=== PATIENT | female | born 1975 | race Caucasian/White ===

== ENCOUNTER 2021-08-05 18:01 | Emergency (ER) | payer OTHER ==
[~2021-08-05] VITALS: Ht 160 cm; Wt 88.5 kg
[~2021-08-05 18:01] MED LIST: FERR325E14 PO; PANT40EC PO
[2021-08-05 18:09] VITALS: BP 187/93
--- NOTE | 2021-08-05 18:16 | NUR ---
PT AMBULATED TO BED 09.
--- NOTE | 2021-08-05 19:03 | NUR ---
46 Y/O F BIB SELF C/O LUQ, LLQ/LUQ, DIZZINESS, ANXIETY, N/V/D/FATIGUE, WEAKNESS, BLOOD IN STOOL THAT IS CHRONIC BUT BECAME WORSE AFTER 2 WEEKS. pmh: htn, hernia repair, anxiety allergies: coband (skin swelling) med: denies
[2021-08-05 19:18] LABS: APPEARANCE,URINE CLEAR (CLEAR); BILIRUBIN,URINE NEGATIVE (NEGATIVE); BLOOD, URINE TRACE-I (NEGATIVE); COLOR,URINE YELLOW (YELLOW); LEUKOCYTE ESTERASE ,URINE NEGATIVE (NEGATIVE); NITRITE, URINE NEGATIVE (NEGATIVE); UGLUCOSE NEGATIVE (NEGATIVE)
[2021-08-05 19:22] LABS: BASOPHILS # (AUTO) 0.1 K/uL (0.00-0.22); BASOPHILS % (AUTO) 0.6 % (0.0-2.0); EOSINOPHILS # (AUTO) 0.2 K/uL (0-0.4); EOSINOPHILS % (AUTO) 1.9 % (0.0-4.0); HEMATOCRIT 36.1 % (36-48); HEMOGLOBIN 11.6 g/dL (12.0-16.0); LYMPHOCYTES # (AUTO) 2.8 K/uL (2.5-16.5); LYMPHOCYTES % (AUTO) 34.4 % (20.5-51.1); MEAN CORPUSCULAR HEMOGLOBIN 25 pg (27-31); MEAN CORPUSCULAR HGB CONC 32 g/dL (33-37); MEAN CORPUSCULAR VOLUME 77.7 fL (80-94); MONOCYTES # (AUTO) 0.8 K/uL (0.8-1.0); MONOCYTES % (AUTO) 9.8 % (1.7-9.3); NEUTROPHILS # (AUTO) 4.4 K/uL (1.8-7.7); NEUTROPHILS % (AUTO) 53.3 % (42.2-75.2); PLATELET COUNT (AUTO) 398 K/uL (140-450); RED BLOOD CELL COUNT(AUTO) 4.65 MIL/uL (4.20-5.40); WHITE BLOOD COUNT (AUTO) 8.3 K/uL (4.8-10.8)
--- NOTE | 2021-08-05 19:30 | NUR ---
Pt report given to AIDA GLEZ. Transfer of care at this time.
[2021-08-05 19:42] LABS: ALBUMIN 3.2 g/dL (3.4-5.0); ANION GAP 9.6 (8-16); CARBON DIOXIDE 25.4 mmol/L (21-32); CREATININE 0.8 mg/dL (0.6-1.3); TOTAL BILIRUBIN 0.2 mg/dL (0.0-1.0)
[2021-08-05] MEDS: NACL 0.9% 1,000 ML IV ONE (19:46)
[2021-08-05 20:06] LABS: RBC,URINE 0-5 /HPF (0-5); WBC,URINE NONE SEEN /HPF (0-5)
--- NOTE | 2021-08-05 20:08 | NUR ---
PT TAKEN T CT VIA [facility] [place]
[2021-08-05] MEDS: MORPHINE SULFATE 4 MG/ML SYR IVP ONE (20:33)
[2021-08-05] MEDS: ONDANSETRON 4 MG/2 ML VIAL IVP ONE (20:34)
[2021-08-05] MEDS ORDERED: IBUP-2213 PO ×2 (21:13→22:09)
[2021-08-05] MEDS ORDERED: BEN10 PO ×2 (21:14→22:09)
[2021-08-05] MEDS ORDERED: ONDA-188 PO ×2 (21:14→22:09)
[2021-08-05] MEDS: KETOROLAC 30 MG/ML VIAL IVP ONE (21:20)
[2021-08-05 22:19] VITALS: BP 187/93
--- NOTE | 2021-08-05 22:20 | NUR ---
Patient discharged with v/s stable. Written and verbal after care instructions given and explained. Patient alert, oriented and verbalized understanding of instructions. Ambulatory with steady gait. All questions addressed prior to discharge. ID band removed. Patient advised to follow up with PMD. Rx of BENTYL, IBUPROFEN, AND ZOFRAN given. Patient educated on indication of medication including possible reaction and side effects. Opportunity to ask questions provided and answered. VSS, A/OX4, AMBULATORY, UNLABORED BREATHING, AND CALM DEMEANOR.
== END 2021-08-05 22:19 | disposition home or self-care (01) ==
LOC: MED 18:01
DX: R10.10 Upper abdominal pain, unspecified (principal); R11.0 Nausea; R51.9 Headache, unspecified; R19.7 Diarrhea, unspecified; K21.9 Gastro-esophageal reflux disease without esophagitis; F41.9 Anxiety disorder, unspecified; Z79.899 Other long term (current) drug therapy; Z98.890 Other specified postprocedural states
CPT/HCPCS: 36415; 74177; 80053; 81001; 81025; 83690; 84702; 85025; 96361; 96374; 96375; 99285; J1885; J2270; J2405; Q9967; J7030